=== PATIENT | male | born 1975 | race African-American/Black ===

== ENCOUNTER 2020-11-21 10:02 | Outpatient (CLI) | payer BC | END 2020-11-21 10:03 | disposition home or self-care (01) | LOC: CSHRAD 10:02 | PROVIDERS: ATTEND Physician Assistant | DX: M23.92 Unspecified internal derangement of left knee (principal); S82.142A Displaced bicondylar fracture of left tibia, initial encounter for closed fracture ==

== ENCOUNTER 2023-10-19 04:08 | Emergency (ER) | payer BC ==
[2023-10-19 04:56] LABS: #Basophils 0.1 10x3/uL (0.0-0.2); #Eosinphils 0.1 10x3/uL (0.0-0.5); #Monocytes 0.9 10x3/uL (0.0-1.1); #Neutrophils 2.8 10x3/uL (1.5-8.4); %Basophils 1.1 % (0.0-2.0); %Eosinophils 1.4 % (0.0-6.0); %Lymphocytes 31.1 % (18.0-47.0); Hematocrit 43.3 % (38.8-50.0); Hemoglobin 15.2 g/dL (13.5-17.5); Mean Corpuscular HGB CONC 35.1 g/dL (32.0-36.0); Mean Corpuscular Hemoglobin 31.7 pg (27.0-33.0); Mean Corpuscular Volume 90.2 fl (81.2-95.1); Mean Platelet Volume 10.8 fl (7.4-10.4); Platelet Count 205 10x3/uL (150-450); RBC Distribution Width 12.6 % (11.5-14.5); White Blood Cell (WBC) Count 5.6 10x3/uL (3.5-10.5)
[2023-10-19 05:10] LABS: ALT (SGPT) 15 U/L (8-55); AST (SGOT) 15 U/L (5-34); Alkaline Phosphatase 93 U/L (40-110); Anion Gap 15 mmol/L (10-20); BUN (Urea Nitrogen) 15 mg/dL (8.9-20.6); Bilirubin, Total 0.4 mg/dL (0.2-1.2); Calc. Creatinine Clearance 0 mL/min (70-130); Calcium 9.4 mg/dL (7.8-10.44); Carbon Dioxide 22 mmol/L (22-29); Chloride 99 mmol/L (98-107); Estimated GFR 63; Globulin 3.7 g/dL (2.4-3.5); Potassium 4.3 mmol/L (3.5-5.1); Protein, Total 7.7 g/dL (6.0-8.3); Sodium 132 mmol/L (136-145)
[2023-10-19 05:14] LABS: Critical Call Chemistry NUR.JH18 @0512; Glucose 481 mg/dL (70-105)
[2023-10-19] MEDS ORDERED: Insulin Regular 300 UNITS/3 ML VIAL ONE (05:29)
[2023-10-19] MEDS ORDERED: Amoxicillin/Potassium Clav 875 MG TAB ONE (06:02)
== END 2023-10-19 06:27 | disposition home or self-care (01) ==
LOC: CSHERS 04:08
DX: A09 Infectious gastroenteritis and colitis, unspecified (principal); E10.65 Type 1 diabetes mellitus with hyperglycemia; I10 Essential (primary) hypertension; E78.5 Hyperlipidemia, unspecified; Z79.899 Other long term (current) drug therapy
CPT/HCPCS: 36416; 74177; 80053; 85025; 96361; 96374; J1815